=== PATIENT | female | born 1985 | race Caucasian/White ===

== ENCOUNTER 2018-11-28 10:44 | Emergency (ER) | payer MEDICAID ==
[~2018-11-28] VITALS: Ht 160 cm; Wt 54.5 kg
[2018-11-28 20:10] VITALS: BP 111/75
== END 2018-11-28 21:45 | disposition left against medical advice (07) ==
LOC: ER 10:44
DX: M54.5 Low back pain (principal); Z53.21 Procedure and treatment not carried out due to patient leaving prior to being seen by health care provider
CPT/HCPCS: 81025

== ENCOUNTER 2022-10-18 12:42 | Observation (INO) | payer MEDICAID ==
[~2022-10-18] VITALS: Ht 154.9 cm; Wt 66.7 kg
== END 2022-10-18 16:40 | disposition home or self-care (01) ==
LOC: 8 EST LDRP 12:42
PROVIDERS: ADMIT Obstetrics & Gynecology; ATTEND Obstetrics & Gynecology
DX: O26.893 Other specified pregnancy related conditions, third trimester (principal); R10.2 Pelvic and perineal pain; O62.9 Abnormality of forces of labor, unspecified; Z3A.38 38 weeks gestation of pregnancy
CPT/HCPCS: 59025; 76805; 76818; G0378; 99281

== ENCOUNTER 2022-11-01 04:04 | Inpatient (IN) | payer MEDICAID ==
[~2022-11-01] VITALS: Ht 152.4 cm; Wt 68.0 kg
[2022-11-01] MEDS ORDERED: METHYLERGONOVINE MALEATE 0.2 MG/ML IM PRN (04:30)
[2022-11-01] MEDS ORDERED: LACTATED RINGERS 1,000 ML IV SCH (04:30)
[2022-11-01] MEDS ORDERED: LIDOCAINE HCL 1% 20ML VIAL (Pyxis) INJ INFIL SCH (04:30)
[2022-11-01] MEDS ORDERED: CARBOPROST TROMETHAMINE 250 MCG/ML AMPUL IM PRN (04:30)
[2022-11-01] MEDS ORDERED: RHO(D) IMMUNE GLOBULIN 300 MCG/SYR IM ONE (04:30)
[2022-11-01] MEDS ORDERED: BUTORPHANOL TARTRATE 2 MG/ML VIAL IV PRN (04:30)
[2022-11-01] MEDS ORDERED: NALOXONE HCL 0.4 MG/ML 1ML VIAL IM PRN (04:30)
[2022-11-01] MEDS ORDERED: MISOPROSTOL 100MCG TABLET VG SCH (04:30)
[2022-11-01] MEDS: OXYTOCIN 30 UNITS/500ML NS PMX 500 ML IV SCH ×2 (04:44→06:37)
[2022-11-01 05:13] LABS: BASOPHILS % 0.2 % (0.0-2.0); CLARITY URINE CLEAR (CLEAR); COLOR URINE YELLOW (YELLOW); EOSINOPHILS % 0.5 % (0.0-5.0); HEMATOCRIT. 36.1 % (36.0-48.0); HEMOGLOBIN. 12.2 g/dL (12.0-16.0); KETONES URINE NEGATIVE (NEGATIVE); LEUKOCYTE ESTERASE URINE NEGATIVE (NEGATIVE); LYMPHOCYTES % 20.4 % (20.0-50.0); MEAN CORPUSCULAR HEMOGLOBIN 26.3 pg (28.0-32.0); MEAN CORPUSCULAR VOLUME 78.1 fL (81.0-99.0); MEAN PLATELET VOLUME 9.2 fl (7.4-10.4); MONOCYTES % 5.1 % (2.0-8.0); NEUTROPHILS % 73.8 % (40.0-76.0); NITRITE URINE NEGATIVE (NEGATIVE); OCCULT BLOOD URINE TRACE (NEGATIVE); PH URINE 6.5 (4.5-8.0); PLATELET 264 x1000/uL (130-400); PROTEIN URINE NEGATIVE (NEGATIVE); RED BLOOD CELL COUNT 4.63 mill/uL (4.2-5.4); RED CELL DISTRIBUTION WIDTH 14.1 % (11.6-14.6); SPECIFIC GRAVITY URINE 1.017 (1.005-1.030); UROBILINOGEN URINE 0.2 E.U./dL (0.2-1.0)
[2022-11-01] MEDS ORDERED: IBUPROFEN 400MG TABLET PO PRN (05:30)
[2022-11-01 05:40] LABS: INR 0.9; PARTIAL THROMBOPLASTIN TIME 26.7 sec (23.4-31.0); PROTHROMBIN TIME 9.9 sec (9.6-11.0)
[2022-11-01 05:41] LABS: *AMPHETAMINES SCREEN URINE NEGATIVE (NEGATIVE); *BARBITURATES SCREEN URINE NEGATIVE (NEGATIVE); *BENZODIAZEPINES SCREEN URINE NEGATIVE (NEGATIVE); *COCAINE SCREEN URINE NEGATIVE (NEGATIVE); CANNABINOID URINE SCREEN NEGATIVE (NEGATIVE); METHADONE URINE SCREEN NEGATIVE (NEGATIVE); OPIATES URINE SCREEN NEGATIVE (NEGATIVE); PHENCYCLIDINE URINE SCREEN NEGATIVE (NEGATIVE)
[2022-11-01 06:08] LABS: HEPATITIS B SURFACE ANTIGEN NEGATIVE
[2022-11-01] MEDS: IBUPROFEN 800MG TABLET PO PRN ×2 (07:12→20:49)
[2022-11-01] MEDS ORDERED: PREN1TAB23 PO (07:16)
[2022-11-01 09:42] VITALS: BP 94/47
[2022-11-01 13:00] VITALS: BP 94/47
[2022-11-01 16:00] VITALS: BP 101/52
[2022-11-01] MEDS ORDERED: TETANUS, DIPHTHERIA, PERTUSSIS VAC/PF 0.5ML (>10YR OLD) IM ONE (17:00)
[2022-11-01] MEDS: PRENATAL VIT/FE FUMARATE/FA TABLET PO SCH (17:27)
[2022-11-01 20:00] VITALS: BP 101/64
[2022-11-02 03:30] VITALS: BP 103/57
[2022-11-02 06:46] LABS: BASOPHILS % 0.4 % (0.0-2.0); EOSINOPHILS % 1.5 % (0.0-5.0); HEMATOCRIT. 34.9 % (36.0-48.0); HEMOGLOBIN. 11.4 g/dL (12.0-16.0); LYMPHOCYTES % 25.8 % (20.0-50.0); MEAN CORPUSCULAR VOLUME 79.2 fL (81.0-99.0); MEAN PLATELET VOLUME 9.1 fl (7.4-10.4); MONOCYTES % 6.1 % (2.0-8.0); NEUTROPHILS % 66.2 % (40.0-76.0); PLATELET 240 x1000/uL (130-400); RED BLOOD CELL COUNT 4.41 mill/uL (4.2-5.4); RED CELL DISTRIBUTION WIDTH 14.7 % (11.6-14.6)
[2022-11-02] MEDS ORDERED: FERROUS SULFATE 325MG TABLET PO SCH (07:30)
[2022-11-02 07:50] VITALS: BP 103/68
[2022-11-02] MEDS: PRENATAL VIT/FE FUMARATE/FA TABLET PO SCH (08:24)
[2022-11-02] MEDS: IBUPROFEN 800MG TABLET PO PRN (09:44)
== END 2022-11-02 12:10 | disposition home or self-care (01) | DRG 560 ==
LOC: OBSVTOIN 04:04 → 8 EST LDRP 04:04 → 8EST 08:56
PROVIDERS: ADMIT Obstetrics & Gynecology; ATTEND Obstetrics & Gynecology
PROC: 10E0XZZ Delivery of Products of Conception, External Approach (ICD-10-PCS; principal; 2022-11-01)
DX: O48.0 Post-term pregnancy (principal); Z37.0 Single live birth; D62 Acute posthemorrhagic anemia; O77.0 Labor and delivery complicated by meconium in amniotic fluid; Z3A.40 40 weeks gestation of pregnancy; Z83.3 Family history of diabetes mellitus; Z20.822 Contact with and (suspected) exposure to COVID-19; O99.03 Anemia complicating the puerperium
CPT/HCPCS: 36415; 80305; 81003; 85025; 86592; 86703; 86762; 86850; 86900; 87340; 87426; 90715; 99281; J3490; J2590

== ENCOUNTER 2023-11-29 02:27 | Emergency (ER) | payer MEDICAID ==
[~2023-11-29] VITALS: Ht 160 cm; Wt 59.0 kg
[~2023-11-29 02:27] MED LIST: PREN1TAB23 PO
[2023-11-29 02:30] VITALS: BP 125/84; PULSE 124; RESP 20; TEMP 90.1; O2SAT 99
[2023-11-29 03:32] LABS: BASOPHILS % 0.5 % (0.0-2.0); DIFFERENTIAL COMMENT 0; EOSINOPHILS % 0.3 % (0.0-5.0); HEMATOCRIT. 37.8 % (36.0-48.0); HEMOGLOBIN. 12.4 g/dL (12.0-16.0); LYMPHOCYTES % 45.3 % (20.0-50.0); MEAN CORPUSCULAR HEMOGLOBIN 25.6 pg (28.0-32.0); MEAN CORPUSCULAR HGB CONC 32.8 g/dL (31.0-37.0); MEAN CORPUSCULAR VOLUME 77.9 fL (81.0-99.0); MEAN PLATELET VOLUME 8.2 fl (7.4-10.4); MONOCYTES % 6.7 % (2.0-8.0); NEUTROPHILS % 47.2 % (40.0-76.0); PLATELET 306 x1000/uL (130-400); RED BLOOD CELL COUNT 4.85 mill/uL (4.2-5.4); RED CELL DISTRIBUTION WIDTH 17.8 % (11.6-14.6); WHITE BLOOD COUNT 6.3 x1000/uL (4.5-11.0)
[2023-11-29 03:56] LABS: ACETAMINOPHEN < 2 ug/mL (10-30); ALANINE AMINOTRANSFERASE 20 IU/L (10-49); ALBUMIN 5.1 g/dL (3.2-4.8); ASPARTATE AMINOTRANSFERASE 30 IU/L (<34); BILIRUBIN TOTAL 0.5 mg/dL (0.1-1.0); CALCIUM 8.9 mg/dL (8.7-10.4); CARBON DIOXIDE 22 mEq/L (21-32); CHLORIDE 110 mEq/L (98-107); CREATININE 0.6 mg/dL (0.6-1.0); ETHANOL BLOOD 360 mg/dL (<10); GLUCOSE 108 mg/dL (70-105); POTASSIUM 3.1 mEq/L (3.5-5.1); PROTEIN TOTAL 7.9 g/dL (6.0-8.3); SODIUM 144 mEq/L (136-145)
[2023-11-29 03:57] LABS: HCG SCREEN NEGATIVE
[2023-11-29 04:00] LABS: UREA NITROGEN BLOOD < 5 mg/dL (9-23)
[2023-11-29] MEDS: POTASSIUM CHLORIDE 20MEQ/PACKET PO NR (06:07)
[2023-11-29] MEDS ORDERED: CHLORDIAZEPOXIDE 25MG CAPSULE PO ONE (12:15)
== END 2023-11-29 12:12 | disposition home or self-care (01) ==
LOC: ER 02:27
DX: T51.0X4A Toxic effect of ethanol, undetermined, initial encounter (principal); R45.851 Suicidal ideations; Y92.9 Unspecified place or not applicable
CPT/HCPCS: 80053; 80307; 80329; 80320; 84703; 85025; 36415; 99285; Z7610; G0480